=== PATIENT | female | born 1985 | race Caucasian/White ===

== ENCOUNTER 2018-11-17 16:34 | Emergency (ER) | payer BC ==
[2018-11-17] MEDS ORDERED: Lidocaine 2% 10 ML Amp ONE (16:40)
[2018-11-17] MEDS ORDERED: Amoxicillin 500 MG Cap ONE (17:45)
--- NOTE | 2018-11-17 18:36 | EDM.PDOC ---
ED HPI GENERAL MEDICAL PROBLEM - General Chief Complaint: General Stated Complaint: Splinter on Left middle Finger Time Seen by Provider: 11/17/18 16:40 Source of Information: Reports: Patient History Limitations: Reports: No Limitations - History of Present Illness INITIAL COMMENTS - FREE TEXT/NARRATIVE: According to patient she was looking at her sister house kitchen cabinet and wooden splinter got under her left middle finger, while she was running her hand over the cabinet. Pt did try to get the nail out and the nail continued to get deeper under the nail. Hence she is here. She claims she is upto date on her tetanus. No other complaints. Onset: Today Onset Date: 11/17/18 Onset Time: 12:00 Location: Reports: Upper Extremity, Left Quality: Reports: Ache Severity: Mild Associated Symptoms: Denies: Fever/Chills, Nausea/Vomiting, Syncope ED ROS GENERAL - Review of Systems Review Of Systems: See Below Constitutional: Denies: Fever, Chills HEENT: Denies: Rhinitis, Throat Pain Respiratory: Denies: Cough, Sputum Cardiovascular: Denies: Chest Pain, Lightheadedness Endocrine: Denies: Fatigue GI/Abdominal: Denies: Abdominal Pain, Nausea, Vomiting : Denies: Dysuria, Frequency Musculoskeletal: Denies: Joint Pain, Joint Swelling Skin: Reports: Bruising. Denies: Pruritis, Rash ED EXAM, GENERAL - Physical Exam Exam: See Below Exam Limited By: No Limitations General Appearance: Alert, WD/WN, No Apparent Distress Eye Exam: Bilateral Eye: EOMI, PERRL Ears: Normal External Exam, Normal Canal, Hearing Grossly Normal, Normal TMs Ear Exam: Bilateral Ear: Auricle Normal, Canal Normal, TM normal Nose: Normal Inspection, Normal Mucosa, No Blood Throat/Mouth: Normal Inspection, Normal Lips, Normal Teeth, Normal Gums, Normal Oropharynx, Normal Voice, No Airway Compromise Head: Atraumatic, Normocephalic Neck: Normal Inspection, Supple, Non-Tender, Full Range of Motion Respiratory/Chest: No Respiratory Distress, Lungs Clear, Normal Breath Sounds, No Accessory Muscle Use, Chest Non-Tender Cardiovascular: Normal Peripheral Pulses, Regular Rate, Rhythm, No Edema, No Gallop, No JVD, No Murmur, No Rub Neurological: Alert, Oriented Skin Exam: Warm, Intact, Other (right middle finger nail: there is a 8mm by 2mm wooden splinted embedded under the nail. the distal tip is 2mm proximal to the nail margin. tender on pressure over the nail.) Course - Vital Signs Text/Narrative:: The distal nail bed was injected with 2% lido about 0.5 cc. After good analgesia obtained, the distal nail was cut , the splinter was removed in 2 pieces. Pressure dressing done. I have empirically started patient on amox 500mg 3 times daily for 10 days. Advised to keep the finger elevated for 3-4 hrs. Avoid wetting the wound. Followup with her primary care provider in 2-3 days. Motrin 600mg 3 times daily for pain. Departure - Departure Time of Disposition: 17:00 Disposition: Home, Self-Care 01 Condition: Fair Clinical Impression: Splinter in skin - Discharge Information *PRESCRIPTION DRUG MONITORING PROGRAM REVIEWED*: Not Applicable *COPY OF PRESCRIPTION DRUG MONITORING REPORT IN PATIENT LORENE: Not Applicable Instructions: Amoxicillin capsules or tablets, Wound Infection, [id number] Referrals: PCP,None [Primary Care Provider] - Forms: ED Department Discharge Additional Instructions: - Keep hand elevated. - Leave dressing for 24 hours. -Apply antibiotic ointment to affected hand when it's open after cleaning with soap and water. - Follow-up with provider in one week or for any other concerns with the affected hand. - Watch for signs of infection: redness, increasing pain, fever and drainage from the finger. - Problem List & Annotations (1) Splinter in skin SNOMED Code(s): 941624997 Code(s): T14.8XXA - OTHER INJURY OF UNSPECIFIED BODY REGION, INITIAL ENCOUNTER Status: Acute Current Visit: Yes - Problem List Review Problem List Initiated/Reviewed/Updated: Yes - Assessment/Plan Assessment:: splinter under left middle finger Plan: The distal nail bed was injected with 2% lido about 0.5 cc. After good analgesia obtained, the distal nail was cut , the splinter was removed in 2 pieces. Pressure dressing done. I have empirically started patient on amox 500mg 3 times daily for 10 days. Advised to keep the finger elevated for 3-4 hrs. Avoid wetting the wound. Followup with her primary care provider in 2-3 days. Motrin 600mg 3 times daily for pain.
== END 2018-11-17 17:50 | disposition home or self-care (01) ==
LOC: LB.ED 16:34
DX: S60.452A Superficial foreign body of right middle finger, initial encounter (principal); W45.8XXA Other foreign body or object entering through skin, initial encounter
CPT/HCPCS: 99282; A9270